=== PATIENT | male | born 1995 | race Caucasian/White ===

== ENCOUNTER 2020-11-02 09:25 | Emergency (ER) | payer SELFPAY ==
--- NOTE | ~2020-11-02 | XR_ITS ---
XR shoulder RT min 2V DATE: 11/02/2020 09:58 INDICATION: Fall onto anterior upper shoulder from height. Right shoulder pain. TECHNIQUE: 5 views COMPARISON: None FINDINGS: No fracture or dislocation, periosteal reaction or bone destruction. Normal alignment at th e acromioclavicular and glenohumeral joints. IMPRESSION: Negative Reviewed, dictated and finalized at location A. [facility] CONSULTANT IMPRESSION: Negative
[2020-11-02 09:40] VITALS: BP 136/68; PULSE 70; RESP 20; TEMP 37.3; O2SAT 98
--- NOTE | 2020-11-02 10:19 | ED.GENADULT ---
HPI - General Adult General Chief complaint: Unspecified Stated complaint: right shoulder injury Source: patient and RN notes reviewed Mode of arrival: ambulatory Limitations: no limitations History of Present Illness HPI narrative: 25 year old male MD complaint: right shoulder pain Onset (ago): day(s) (4) Location: upper extremity (shoulder right) Related Data Allergies Allergy/AdvReac Type Severity Reaction Status Date / Time No Known Allergies Allergy Verified 11/02/20 10:29 Review of Systems Review of Systems: Narrative: CONSTITUTIONAL: Denies fever, chills, or sweats. EYES: Denies visual changes, redness, or discharge. ENT: Denies rhinorrhea, congestion, sore throat, or otalgia. CARDIOVASCULAR: Denies chest pain, palpitations, or edema. RESPIRATORY: Denies cough or dyspnea. GASTROINTESTINAL: Denies abdominal pain, nausea, vomiting, or diarrhea. GENITOURINARY: Denies dysuria or hematuria. SKIN: Denies rash or itching. MUSCULOSKELETAL: Denies back pain, right shoulder pain posterior region and at AC joint region, or myalgia. NEUROLOGIC: Denies headache, numbness, or weakness. PSYCHIATRIC: Denies anxiety or depression. All systems reviewed & are unremarkable except as noted in HPI and below PMFSH Comments At time of signature, agree with nursing past medical, surgical, social and family history. There is no relevant family history pertinent to the presenting complaint Exam Narrative: Exam Narrative: GENERAL: Well-appearing, well-nourished, and in no acute distress. HEAD: Normocephalic, atraumatic. EYES: PERRLA and EOMI. ENT: Nares clear, no rhinorrhea or epistaxis. Mucous membranes moist. NECK: Supple. CHEST: Clear to auscultation. No respiratory distress. HEART: Regular rate and rhythm. No murmur heard. Normal peripheral pulses. ABDOMEN: Soft, nontender, nondistended, normal active bowel sounds. EXTREMITIES: Normal range of motion. No edema. SKIN: Warm, dry, no rash. NEURO: No focal deficits. Alert and oriented x3. Course Vital Signs Vital signs: Vital Signs Temperature 37.3 C 11/02/20 09:40 Pulse Rate 70 11/02/20 09:40 Respiratory Rate 20 11/02/20 09:40 Blood Pressure 136/68 11/02/20 09:40 Pulse Oximetry 98 11/02/20 09:40 Temperature 37.3 C 11/02/20 09:40 Pulse Rate 70 11/02/20 09:40 Respiratory Rate 20 11/02/20 09:40 Blood Pressure 136/68 11/02/20 09:40 Pulse Oximetry 98 11/02/20 09:40 Medical Decision Making Medical Records Medical records reviewed: Yes I reviewed the patient's medical records. Vital Signs Vital Signs: Vital Signs Temperature 37.3 C 11/02/20 09:40 Pulse Rate 70 11/02/20 09:40 Respiratory Rate 20 11/02/20 09:40 Blood Pressure 136/68 11/02/20 09:40 Pulse Oximetry 98 11/02/20 09:40 Temperature 37.3 C 11/02/20 09:40 Pulse Rate 70 11/02/20 09:40 Respiratory Rate 20 11/02/20 09:40 Blood Pressure 136/68 11/02/20 09:40 Pulse Oximetry 98 11/02/20 09:40 Critical Care Time Critical Care Time Critical Care Time: No Discharge Plan Discharge Clinical Impression: Pain of right great toe Right shoulder strain Qualifiers: Encounter type: initial encounter Qualified Code(s): S46.911A - Strain of unspecified muscle, fascia and tendon at shoulder and upper arm level, right arm, initial encounter Patient Disposition: Home, Self-Care Condition: Stable Instructions: Shoulder Sprain (ED), Arthralgia (ED) Additional Instructions: Tylenol for lesser pain Ibuprofen regularly for the next 2-3 days for the inflammation Steroids daily x5 days with food Follow-up with orthopedic surgeon if not improved Follow-up with PCP if further problems or concerns Ice to the area 20-30 minutes 4-6 times a day Elevate above heart If your symptoms persist, change or worsen significantly before you can contact your personal physician then please, without delay, go to the emergency department for further evaluation. Follow
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
== END 2020-11-02 10:42 | disposition home or self-care (01) ==
PROVIDERS: Emergency Provider Registered Nurse
DX: S46.911A Strain of unspecified muscle, fascia and tendon at shoulder and upper arm level, right arm, initial encounter (principal); W17.89XA Other fall from one level to another, initial encounter; M79.674 Pain in right toe(s); F17.220 Nicotine dependence, chewing tobacco, uncomplicated
CPT/HCPCS: 73030; 99213; G0463